=== PATIENT | female | born 1980 | race Asian ===

== ENCOUNTER 2021-11-05 10:15 | Emergency (ER) | payer MEDICAID ==
[~2021-11-05] VITALS: Ht 152.4 cm; Wt 62.0 kg
[2021-11-05 14:50] VITALS: BP 144/86
[2021-11-05] MEDS: ACETAMINOPHEN 500 MG TABLET PO ONE (14:58)
[2021-11-05 16:27] LABS: COVID AG,FIA SOURCE NASOPHARYNGEAL
== END 2021-11-05 17:08 | disposition home or self-care (01) ==
LOC: EMS 10:17
DX: J40 Bronchitis, not specified as acute or chronic (principal); Z20.822 Contact with and (suspected) exposure to COVID-19
CPT/HCPCS: 71046; 99284